=== PATIENT | female | born 1960 | race African-American/Black ===

== ENCOUNTER 2017-09-16 17:01 | Emergency (ER) | payer OTHER ==
[~2017-09-16] VITALS: Ht 167.6 cm; Wt 89.8 kg
[~2017-09-16 17:01] MED LIST: MAXIDE; NORVASC
[2017-09-16 17:07] VITALS: BP 142/99
--- NOTE | 2017-09-16 20:30 | NUR ---
PATIENT LEFT WITHOUT BEING SEEN BY DR. Piedra. NO FURTHER CARE PROVIDED FOR PATIENT.
== END 2017-09-16 20:30 | disposition left against medical advice (07) ==
LOC: MED 17:01
DX: M79.642 Pain in left hand (principal); M79.641 Pain in right hand; Z53.21 Procedure and treatment not carried out due to patient leaving prior to being seen by health care provider